=== PATIENT | male | born 1995 | race Caucasian/White ===

== ENCOUNTER 2021-09-04 09:51 | Emergency (ER) | payer OTHER, SELFPAY ==
--- NOTE | ~2021-09-04 | CT_ITS ---
EXAMINATION: CT abdomen pelvis w con DATE: 09/04/2021 11:21 INDICATION: Lower abdominal pain. Appendicitis. TECHNIQUE: Computed tomography (CT) of the abdomen and pelvis was performed with 100 cc Omnipaque 350 intravenous contrast. The dose-length product was 260.49 mGy-cm. Automated exposure control and iter ative reconstruction technique were employed. COMPARISON: None. FINDINGS: Lung bases are unremarkable. Heart size normal. No significant pleural or pericardial effus ion. No significant vascular abnormality. No lymphadenopathy. There is mild thickening of the left co steve and rectum, suspicious for colitis. The liver, spleen, pancreas, adrenal glands and kidneys are unremarkable. Gallbladder is present. No free air. Trace free fluid in the pelvis. No acute osseous abnormality. IMPRESSION: 1. Mild thickening of the left colon and rectum, suspicious for colitis. Consider infectious and infl ammatory colitis. Reviewed, dictated and finalized at location A. IMPRESSION: 1. Mild thickening of the left colon and rectum, suspicious for colitis. Consid er infectious and inflammatory colitis.
[2021-09-04 10:31] VITALS: BP 143/72; PULSE 64; RESP 18; TEMP 36.4; O2SAT 100
[2021-09-04 10:36] LABS: Basophils Percent Auto 0.2 % (0.2-1.2); Eosinophils Percent Auto 0.5 % (0-4.4); Hematocrit 43.5 % (42.0-52.0); Immature Granulocyte Absolute 0.02 K/mm3 (0.00-0.031); Immature Granulocyte Percent A 0.3 % (0-0.5); Lymphocytes Absolute Auto 1.04 K/mm3 (0.9-3.2); Lymphocytes Percent Auto 17.7 % (18.3-44.2); Mean Corpuscular HGB Conc 34.5 g/dl (32-36); Mean Corpuscular Hemoglobin 30.1 pg (26-34); Mean Corpuscular Volume 87.2 fl (80-100); Mean Platelet Volume 10.3 fl (7.4-10.4); Monocytes Absolute Auto 0.3 K/mm3 (0.1-0.6); Monocytes Percent Auto 5.1 % (2.6-8.5); Neutrophils Absolute Auto 4.5 K/mm3 (1.3-6.7); Neutrophils Percent Auto 76.2 % (45.5-73.1); Platelet Count Result 185 k/mm3 (150-375); Red Blood Count 4.99 M/mm3 (4.6-6.20); Red Cell Distribution Width 11.9 % (11.5-14.5); White Blood Count 5.9 K/mm3 (4.5-10.0)
--- NOTE | 2021-09-04 10:47 | ED.ABDPAIN ---
HPI - Abdominal Pain General Chief Complaint: Abdominal Pain <Edith Richards PA-C - Last Filed: 09/04/21 12:17> Stated Complaint: abd pain <Edith Richards PA-C - Last Filed: 09/04/21 12:17> Time Seen by Provider: 09/04/21 10:12 <Edith Richards PA-C - Last Filed: 09/04/21 12:17> Source: patient <ALIA Núñez Last Filed: 09/04/21 12:17> Mode of arrival: ambulatory <ALIA Núñez Last Filed: 09/04/21 12:17> Limitations: no limitations <Edith Richards PA-C - Last Filed: 09/04/21 12:17> History of Present Illness HPI narrative: Patient presents with chief complaint of right and left lower quadrant abdominal pain that began this morning at approximately 6:30 AM. Patient reports the pain is sharp in nature and he has not had pain of this nature in the past. Patient reports that he had one episode of vomiting after trying to take Pepto-Bismol for his discomfort and the Pepto-Bismol did not alleviate his symptoms. Patient reports that he does smoke cigarettes and marijuana. Patient reports his last marijuana usage was this morning. Patient denies ever having any abdominal surgeries or issues with his abdominal area including his appendix. Patient denies any urinary symptoms. He denies any alcohol usage last night or this morning. He reports last night he did have multiple sodas. Patient denies any nausea, vomiting, fever, chills, chest pain, shortness of breath, diarrhea, constipation or any other symptoms at this time besides sharp abdominal discomfort. <Edith Richards PA-C - Last Filed: 09/04/21 12:17> Related Data Allergies/Adverse Reactions: Allergies Allergy/AdvReac Type Severity Reaction Status Date / Time No Known Allergies Allergy Verified 09/04/21 11:05 <ALIA Núñez Last Filed: 09/04/21 12:17> Review of Systems Review of Systems: CONSTITUTIONAL: Denies fever, chills, or sweats. EYES: Denies visual changes, redness, or discharge. ENT: Denies rhinorrhea, congestion, sore throat, or otalgia. CARDIOVASCULAR: Denies chest pain, palpitations, or edema. RESPIRATORY: Denies cough or dyspnea. GASTROINTESTINAL: Reports abdominal pain denies nausea, vomiting, or diarrhea. GENITOURINARY: Denies dysuria or hematuria. SKIN: Denies rash or itching. MUSCULOSKELETAL: Denies back pain, joint pain, or myalgia. NEUROLOGIC: Denies headache, numbness, dizziness, or weakness. PSYCHIATRIC: Denies anxiety or depression. <Edith Richards PA-C - Last Filed: 09/04/21 12:17> Exam Narrative: GENERAL: Well-appearing, well-nourished, and in no acute distress. HEAD: Normocephalic, atraumatic. EYES: PERRLA and EOMI. NECK: Supple. No adenopathy or masses. Range of motion intact without rigidity. CHEST: Clear to auscultation. No respiratory distress. No wheezes rales or rhonchi HEART: Regular rate and rhythm. No murmur heard. Normal peripheral pulses. ABDOMEN: Soft, tender to lower abdominal area greater in the right lower quadrant, no rebound tenderness or guarding, nondistended, normal active bowel sounds. EXTREMITIES: Normal range of motion. No edema. SKIN: Warm, dry, no rash. NEURO: No focal deficits. Alert and oriented x3. PSYCH: Normal mood and affect. <Edith Richards PA-C - Last Filed: 09/04/21 12:17> Course APPRENTICE COOK/PA Physician Supervision I did not see this patient nor was the care plan discussed with me. I was available for evaluation and consultation, I agree with the documentation as above <Justus Aldana MD - Last Filed: 09/04/21 15:09> Vital Signs Vital signs: Vital Signs Temperature 36.4 C 09/04/21 10:31 Pulse Rate 64 09/04/21 10:31 Respiratory Rate 18 09/04/21 10:31 Blood Pressure 143/72 H 09/04/21 10:31 Pulse Oximetry 100 09/04/21 10:31 Temperature 36.4 C 09/04/21 10:31 Pulse Rate 70 09/04/21 12:41 Respiratory Rate 17 09/04/21 12:41 Blood Pressure 121/74 09/04/21 12:41 Pulse Oximetry 98 09/04/21 12:
[2021-09-04 10:49] LABS: Alanine Aminotransferase 30 U/L (4-50); Albumin Level 4.8 g/dL (3.5-5.1); Alkaline Phosphatase 80 U/L (38-126); Anion Gap 8 mmol/L (8-16); Aspartate Amino Transferase 27 U/L (17-59); Bilirubin,Total 0.3 mg/dL (0.2-1.3); Blood Urea Nitrogen 11 mg/dL (9-20); Calcium 9.3 mg/dL (8.4-10.2); Carbon Dioxide 26 mmol/L (22-30); Chloride 104 mmol/L (98-107); Estimated CRCL calculation 139 ml/min; Estimated Glomerular Filt Rate > 60; Glucose 133 mg/dL (65-110); Lipase 35 U/L (23-300); Potassium 3.9 mmol/L (3.4-5.0); Sodium 138 mmol/L (137-145)
[2021-09-04 10:58] LABS: Add Urine Microscopic? YES; Appearance Urine Clear (Clear); Bilirubin Urine Negative (Negative); Blood Urine Negative (Negative); Color Urine Amber (Yellow); Glucose Urine UA Negative (Negative); Ketones Urine Negative (Negative); Leukocyte Esterase Ur Negative LEU/UL (Negative); Mucus Urine Moderate /lpf; Nitrate Urine Negative (Negative); Protein Urine 1+ mg/dL (Negative); RBC Urine 0-2 /hpf (0-2); Specific Grav Ur 1.028 (1.001-1.035)
[2021-09-04 12:41] VITALS: BP 121/74; PULSE 70; RESP 17; O2SAT 98
== END 2021-09-04 12:41 | disposition home or self-care (01) ==
PROVIDERS: Emergency Provider Emergency Medicine; PCP Family Medicine
DX: K52.9 Noninfective gastroenteritis and colitis, unspecified (principal); F17.200 Nicotine dependence, unspecified, uncomplicated
CPT/HCPCS: 36415; 74177; 80053; 81001; 83690; 85025; 96365; 99284; J0131; Q9967

== ENCOUNTER 2023-09-17 10:17 | Emergency (ER) | payer OTHER, SELFPAY ==
--- NOTE | ~2023-09-17 | CT_ITS ---
EXAMINATION: CT abdomen pelvis w con DATE: 09/17/2023 12:07 INDICATION: Right upper quadrant abdominal pain TECHNIQUE: Computed tomography (CT) of the abdomen and pelvis was performed with 100 CC Omnipaque 350 intravenous contrast. Automated exposure control and iterative reconstruction technique were employe d. Exam dose: 330.89 mGy-cm total exam DLP. COMPARISON: 09/04/2021 CT abdomen pelvis 09/17/2023 right upper quadrant abdominal ultrasound examination FINDINGS: The lung bases are clear. Normal heart size. No pericardial or pleural effusion. The liver, gallbladder, bile ducts, pancreas and pancreatic duct appear normal. Splenomegaly; spleen measures in excess of 16 cm vertical dimension. Normal morphology of the adrenal glands. No renal mass lesion or urinary tract calculus or hydroureteronephrosis. The urinary bladder is unrem arkable. Normal caliber of the abdominal aorta. No intraperitoneal or retroperitoneal or pelvic mass lesion or adenopathy or ascites is evident. No evidence of appendicitis is noted. No bowel obstruction, bowel wall thickening, pneumatosis or int raperitoneal free air is detected. There is a small amount of free fluid in the right lower dependent pelvis. Included skeletal structures are unremarkable. IMPRESSION: Nonspecific small amount of fluid in the dependent right lower pelvic area Splenomegaly Reviewed, dictated and finalized at [facility]. Reviewed, dictated and finalized at location B. IMPRESSION: Nonspecific small amount of fluid in the dependent right lower pel nicolle area Splenomegaly
--- NOTE | ~2023-09-17 | US_ITS ---
EXAMINATION: US right upper quadrant DATE: 09/17/2023 11:57 INDICATION: Right upper quadrant abdominal pain. TECHNIQUE: Multiple grayscale and Doppler ultrasound images of the abdomen were obtained. COMPARISON: CT abdomen and pelvis 09/04/21 FINDINGS: The visualized portions of the head, body, and tail of the pancreas are normal. The liver i s normal without focal lesion. No liver surface nodularity. There is normal flow in main portal vein. The gallbladder is contracted. No gallstones. There was no sonographic Moreno sign. The common duct measures 3 mm. IMPRESSION: 1. No etiology for the patient's symptoms. Reviewed, dictated and finalized at location E.
[2023-09-17 10:19] VITALS: BP 153/89; PULSE 104; RESP 18; TEMP 35.6; O2SAT 100
[2023-09-17] MEDS: SODIUM CHLORIDE 0.9% IV 1,000 ML 999 ML IV CONT (11:39)
[2023-09-17 11:47] LABS: Hematocrit 40.5 % (42.0-52.0); Hemoglobin 13.3 g/dL (14.0-18.0); Immature Platelet Fraction Pct 3.7 % (0.9-11.2); Mean Corpuscular HGB Conc 32.8 g/dl (32-36); Mean Corpuscular Volume 88.2 fl (80-100); Mean Platelet Volume 10.6 fl (7.4-10.4); Platelet Count Result 142 k/mm3 (150-375); Red Blood Count 4.59 M/mm3 (4.6-6.20); Red Cell Distribution Width 12.7 % (11.5-14.5); White Blood Count 9.3 K/mm3 (4.5-10.0)
[2023-09-17 11:56] LABS: Prothrombin Time 13.2 Seconds (11.1-14.7)
[2023-09-17 11:57] LABS: Partial Thromboplastin Time 32.2 SECONDS (22.3-36.8)
[2023-09-17 12:02] LABS: Estimated CRCL calculation 132 ml/min; Estimated Glomerular Filt Rate > 60
[2023-09-17 12:12] LABS: Atypical Lymphocytes Present; Lymphocytes Absolute Manual 8.09 K/mm3 (1.1-4.5); Lymphocytes Percent Manual 87 % (18-44); Monocytes Absolute Manual 0.55 K/mm3 (0.1-0.90); Monocytes Percent Manual 6 % (3-9); Neutrophils Percent Manual 7 % (46-73); Platelet Estimate Adequate (Adequate); Schistocytes None Seen (NORMAL); Total Cells Counted 100
--- NOTE | 2023-09-17 12:16 | ED.RECABL ---
HPI - Recheck/Abnormal Lab/Rx General Chief Complaint: Recheck/Abnormal Lab/Rx Stated Complaint: n/v, elevated liver enzymes? Time Seen by Provider: 09/17/23 11:08 History of Present Illness HPI narrative: Is a 28-year-old male, with no significant past medical history, who presents to the emergency department complaining of abdominal pain and elevated liver enzymes. The patient states that over the past 3 days, he has had sharp, abdominal pain in the left lower quadrant and the right upper quadrant. He was seen by his primary care doctor and told that he is liver enzymes were 3 times the normal. He states he had an elevated temperature of 100.42 days ago. He also complains of nausea with nonbloody vomiting. Related Data Allergies Allergy/AdvReac Type Severity Reaction Status Date / Time No Known Allergies Allergy Verified 09/17/23 10:23 Review of Systems Review of Systems: CONSTITUTIONAL: Denies fever, chills, or sweats. CARDIOVASCULAR: Denies chest pain, palpitations, or edema. RESPIRATORY: Denies cough or dyspnea. GASTROINTESTINAL: Right upper quadrant abdominal pain, left lower quadrant abdominal pain, nausea and vomiting denies diarrhea. GENITOURINARY: Denies dysuria or hematuria. SKIN: Denies rash or itching. MUSCULOSKELETAL: Denies back pain, joint pain, or myalgia. NEUROLOGIC: Denies headache, numbness, dizziness, or weakness. PSYCHIATRIC: Denies anxiety or depression. PMFSH Past Medical History Medical History No significant medical problems Surgical History Surgical History No significant past surgical history Social History Social History Smoking status: Current every day smoker Alcohol intake: never Substance use: never Exam Narrative: GENERAL: Well-developed, well-nourished, and in no acute distress. HEAD: Normocephalic, atraumatic. EYES: PERRLA and EOMI. ENT: Nares clear, no rhinorrhea or epistaxis. Mucous membranes moist. Oropharynx without tonsillar hypertrophy exudate or other lesions. Faint jaundice noted of the soft palate. NECK: Supple. No adenopathy or masses. CHEST: Clear to auscultation. No respiratory distress. No wheezes rales or rhonchi HEART: Regular rate and rhythm. No murmur heard. Normal peripheral pulses. ABDOMEN: Soft, mild tenderness to palpation in the right upper quadrant and left lower quadrant without rebound or guarding, nondistended, normal active bowel sounds. No CVA tenderness EXTREMITIES: Normal range of motion. No edema. SKIN: Warm, dry, no rash. NEURO: Alert and oriented x3. Moving all 4 limbs purposefully. PSYCH: Normal mood and affect. Course Course Emergency Course: 14:30 - CBC demonstrates mild anemia with hemoglobin of 13.3 and mild thrombocytopenia of 142 but is otherwise unremarkable. Chemistries demonstrate elevated AST and ALT of 244/398 respectively as well as elevated total bilirubin of 1.5 but is otherwise unremarkable. Lactic acid negative. Ultrasound not concerning for cholecystitis or cholelithiasis. CT abdomen pelvis demonstrates some splenomegaly and small amount of free fluid in the right pelvis without obvious cause or other acute process. I advised the patient to follow-up with his primary care doctor as well as GI. Vital Signs Vital signs: Vital Signs Temperature 96.1 F L 09/17/23 10:19 Pulse Rate 104 H 09/17/23 10:19 Respiratory Rate 18 09/17/23 10:19 Blood Pressure 153/89 H 09/17/23 10:19 Pulse Oximetry 100 09/17/23 10:19 Oxygen Delivery Room Air 09/17/23 10:19 Temperature 97.9 F 09/17/23 12:30 Pulse Rate 66 09/17/23 13:00 Respiratory Rate 18 09/17/23 13:00 Blood Pressure 123/85 09/17/23 13:00 Pulse Oximetry 100 09/17/23 13:00 Oxygen Delivery Room Air 09/17/23 10:19 MDM - Recheck/Abnormal Lab/Rx MDM
[2023-09-17 12:18] VITALS: BP 121/75; PULSE 66; RESP 18; O2SAT 100
[2023-09-17 12:30] VITALS: BP 133/81; PULSE 68; RESP 18; TEMP 36.6; O2SAT 100
[2023-09-17 12:45] LABS: Lactic Acid Reflex 1.2 mmol/L (0.7-2.0)
--- NOTE | 2023-09-17 12:52 | PC.NURSE ---
Pt redrawn x2 for CMP. Partial results returned. lab states both specimens have clotted.
[2023-09-17 13:00] VITALS: BP 123/85; PULSE 66; RESP 18; O2SAT 100
[2023-09-17 14:02] LABS: Alanine Aminotransferase 398 U/L (6-50); Albumin Level 3.5 g/dL (3.5-5.1); Alkaline Phosphatase 199 U/L (38-126); Anion Gap 4 mmol/L (8-16); Aspartate Amino Transferase 244 U/L (17-59); Bilirubin,Total 1.5 mg/dL (0.2-1.3); Blood Urea Nitrogen 7 mg/dL (9-20); Carbon Dioxide 28 mmol/L (22-30); Chloride 106 mmol/L (98-107); Estimated CRCL calculation 132 ml/min; Estimated Glomerular Filt Rate > 60; Glucose 111 mg/dL (65-110); Sodium 138 mmol/L (137-145)
[2023-09-17] MEDS: ONDANSETRON INJ 4 MG/2 ML VIAL (14:50)
--- NOTE | 2023-09-17 14:51 | PC.NURSE ---
1445- pt c/o nausea, Dr. Souza informed. Orders received
== END 2023-09-17 14:55 | disposition home or self-care (01) ==
PROVIDERS: Emergency Provider Preventive Medicine Aerospace Medicine
DX: R10.11 Right upper quadrant pain (principal); R74.01 Elevation of levels of liver transaminase levels; F17.200 Nicotine dependence, unspecified, uncomplicated
CPT/HCPCS: 36415; 74177; 76705; 80053; 83605; 85025; 85055; 85610; 85730; 96361; 96374; 99284; J2405; J7030; Q9967